=== PATIENT | female | born 1945 | race African-American/Black ===

== ENCOUNTER 2018-10-03 13:47 | Emergency (ER) | payer MEDICARE, OTHER ==
[~2018-10-03] VITALS: Ht 165.1 cm; Wt 75.0 kg
[2018-10-03] MEDS ORDERED: LISI2.5T47 PO (13:52)
[2018-10-03] MEDS ORDERED: SODIUM CHLORIDE 0.9% 1,000 ML IV ONE ×2 (14:10→15:17)
[2018-10-03] MEDS ORDERED: ONDANSETRON HCL 4MG/2ML INJ IV STA (14:10)
[2018-10-03 15:13] LABS: BASOPHILS % 0.6 % (0.0-2.0); HEMATOCRIT. 39.4 % (36.0-48.0); HEMOGLOBIN. 12.9 g/dL (12.0-16.0); LYMPHOCYTES % 10.3 % (20.0-50.0); MEAN CORPUSCULAR HEMOGLOBIN 31.6 pg (28.0-32.0); MEAN CORPUSCULAR VOLUME 96.2 fL (81.0-99.0); MEAN PLATELET VOLUME 8.7 fl (7.4-10.4); MONOCYTES % 3.6 % (2.0-8.0); NEUTROPHILS % 85.5 % (40.0-76.0); PLATELET 591 x1000/uL (130-400); RED BLOOD CELL COUNT 4.09 mill/uL (4.2-5.4); RED CELL DISTRIBUTION WIDTH 13.4 % (11.6-14.6)
[2018-10-03 15:17] LABS: CHLORIDE 101 mEq/L (98-107)
[2018-10-03] MEDS ORDERED: MORPHINE SULFATE 4 MG/ML CPJ (NOT FOR IM USE) IV STA (15:17)
[2018-10-03 15:20] LABS: PROTHROMBIN TIME 10.7 sec (9.6-11.0)
[2018-10-03] MEDS ORDERED: PIPERACILLIN/TAZ 3.375G PREMIX 50 ML IV NR (17:00)
[2018-10-03] MEDS ORDERED: PIPERACILLIN/TAZOBACTAM 3.375GM/50ML PREMIX IV ONE (17:00)
[2018-10-03] MEDS ORDERED: MORPHINE SULFATE 4 MG/ML CPJ (NOT FOR IM USE) IV ONE (17:00)
[2018-10-03] MEDS ORDERED: IOHEXOL-300 100 ML BOTTLE ONE (17:40)
[2018-10-03] MEDS ORDERED: KCL 20MEQ/100ML PREMIX 100 ML IV ONE (17:45)
[2018-10-03 19:26] LABS: CLARITY URINE CLOUDY (CLEAR); COLOR URINE YELLOW (YELLOW); KETONES URINE NEGATIVE (NEGATIVE); LEUKOCYTE ESTERASE URINE NEGATIVE (NEGATIVE); NITRITE URINE NEGATIVE (NEGATIVE); OCCULT BLOOD URINE 2+ (NEGATIVE); PH URINE 7.5 (4.5-8.0); PROTEIN URINE NEGATIVE (NEGATIVE); SPECIFIC GRAVITY URINE 1.067 (1.005-1.030); UROBILINOGEN URINE 0.2 E.U./dL (0.2-1.0)
[2018-10-03 19:44] LABS: *AMPHETAMINES SCREEN URINE NEGATIVE (NEGATIVE); *BARBITURATES SCREEN URINE NEGATIVE (NEGATIVE)
[2018-10-03 19:45] LABS: *BENZODIAZEPINES SCREEN URINE NEGATIVE (NEGATIVE); *COCAINE SCREEN URINE NEGATIVE (NEGATIVE); CANNABINOID URINE SCREEN NEGATIVE (NEGATIVE); METHADONE URINE SCREEN NEGATIVE (NEGATIVE); OPIATES URINE SCREEN PRESUMTIVE POSITIVE (NEGATIVE); PHENCYCLIDINE URINE SCREEN NEGATIVE (NEGATIVE)
[2018-10-03 21:42] VITALS: BP 144/78
== END 2018-10-03 21:52 | disposition home or self-care (01) ==
LOC: ER 13:47 → EDBD 13:47 → ER 21:52
DX: S31.010D Laceration without foreign body of lower back and pelvis without penetration into retroperitoneum, subsequent encounter (principal); R10.13 Epigastric pain; R50.9 Fever, unspecified; R11.2 Nausea with vomiting, unspecified; I10 Essential (primary) hypertension; Z79.899 Other long term (current) drug therapy; R00.0 Tachycardia, unspecified; X58.XXXD Exposure to other specified factors, subsequent encounter
CPT/HCPCS: 36415; 71045; 74177; 80053; 80305; 80320; 81003; 83605; 83690; 85025; 85610; 87040; 87086; 96361; 96365; 96366; 96367; 96375; 96376; 99284; J2270; J2405; J2543; J3480; J7030; Q9967; G0480